=== PATIENT | female | born 1945 | race Caucasian/White ===

== ENCOUNTER → 2016-10-05 | Outpatient (CLI) | payer MEDICARE ==
[~2016-10-05] MED LIST: ASPI-496 PO; CHOL200024 PO; FURO-92 PO; GEMF600T3 PO; GLIP5TAB10 PO; LOSA25TA5 PO; MAGN300C PO; METO25TA35 PO; OMEG-76 PO; POTA20TA6 PO
== END | disposition home or self-care (01) ==
LOC: RAD 11:34
PROVIDERS: ATTEND Family Medicine
DX: J20.9 Acute bronchitis, unspecified (principal); Z87.891 Personal history of nicotine dependence
CPT/HCPCS: 71020